=== PATIENT | female | born 1980 | race African-American/Black ===

== ENCOUNTER 2021-02-18 18:14 | Emergency (ER) | payer MEDICAID ==
[~2021-02-18] VITALS: Ht 167.6 cm; Wt 63.0 kg
[2021-02-18] MEDS ORDERED: KETOROLAC 60MG/2ML VIAL IM ONE (18:45)
[2021-02-18] MEDS ORDERED: NAPR-681 MT (19:46)
[2021-02-18 20:29] VITALS: BP 160/80
== END 2021-02-18 20:39 | disposition home or self-care (01) ==
LOC: ER 18:14
DX: S83.91XA Sprain of unspecified site of right knee, initial encounter (principal); W01.0XXA Fall on same level from slipping, tripping and stumbling without subsequent striking against object, initial encounter; Y93.89 Activity, other specified; Y92.018 Other place in single-family (private) house as the place of occurrence of the external cause
CPT/HCPCS: 73502; 73552; 73562; 81025; 96372; 99284; J1885